=== PATIENT | female | born 1965 | race Two or more races ===

== ENCOUNTER → 2019-02-24 13:48 | Outpatient (CLI) | payer OTHER, SELFPAY ==
[2019-03-02 14:03] LABS: HPV Reflexed? NOT INDICATED
== END ==
PROVIDERS: Visit Provider Obstetrics & Gynecology
DX: Z12.4 Encounter for screening for malignant neoplasm of cervix (principal)
CPT/HCPCS: 88175; G0145

== ENCOUNTER 2021-09-10 08:51 | Outpatient (CLI) | payer OTHER, SELFPAY ==
[2021-09-12 13:12] LABS: HPV APTIMA, High Risk Negative (Negative)
== END 2021-09-10 23:59 | disposition home or self-care (01) ==
PROVIDERS: Visit Provider Student in an Organized Health Care Education/Training Program
DX: Z12.4 Encounter for screening for malignant neoplasm of cervix (principal)
CPT/HCPCS: 87624; 88175; G0145